=== PATIENT | male | born 1950 ===

== ENCOUNTER 2018-11-02 09:52 | Day surgery (SDC) | payer MEDICARE ==
[~2018-11-02 09:52] MED LIST: Buffered Lidocaine 1% SYRIN* 1 ML/SYRINGE INTRADERM ONE; Famotidine IV* 10 MG/ML 2 ML (20 mg) IV ONE; Lactated Ringers 1000 ML Bag* 1,000 ML IV SCH
[2018-11-02] MEDS ORDERED: Famotidine IV* 10 MG/ML 2 ML (20 mg) ONE (10:41)
[2018-11-02] MEDS ORDERED: Buffered Lidocaine 1% SYRIN* 1 ML/SYRINGE INTRADERM ONE (10:41)
[2018-11-02] MEDS ORDERED: Oxymetazoline 0.05% NASAL SPR* 15 ML BTL ONE ×2 (11:05→12:02)
[2018-11-02] MEDS ORDERED: fentaNYL* 50 MCG/ML 2 ML VIAL (100 MCG VIAL) ONE (11:46)
[2018-11-02] MEDS ORDERED: Midazolam* 1 MG/ML 2 ML VIAL (2 MG) ONE (11:46)
[2018-11-02] MEDS ORDERED: Bacitracin OINTMENT* 0.5% 0.5 oz TUBE ONE (12:02)
[2018-11-02] MEDS ORDERED: Lidocain 1% EPI 1:100,000 * 30 ML MDV ONE (12:02)
[2018-11-02] MEDS ORDERED: Lidocaine 4% TOPICAL* 50 ML TOP.SOLN ONE (12:02)
[2018-11-02] MEDS ORDERED: Propofol* 10 MG/ML 20 ML BTL ONE (12:08)
[2018-11-02] MEDS ORDERED: fentaNYL* 50 MCG/ML 2 ML VIAL (100 MCG VIAL) IV PRN (12:50)
[2018-11-02] MEDS ORDERED: DiMENhydriNATE IV* 50 MG/ML VIAL IV PUSH PRN (12:50)
[2018-11-02] MEDS ORDERED: Naloxone* 0.4 MG/ML 1 ML VIAL IV PRN (12:50)
[2018-11-02] MEDS ORDERED: HYDROcodone/ACETAMIN 5-325 MG* 1 TAB ONE (14:32)
[2018-11-02 14:39] VITALS: BP 163/84
--- NOTE | 2018-11-02 22:34 | OP ---
DATE OF OPERATION: 11/02/18 - [facility] DATE OF : 52 SURGEON: Yaniv Moyer MD. TREASURY ANALYST: None. ANESTHESIA: General. PRE-OP DIAGNOSIS: Chronic sinusitis involving the left frontal ethmoid and maxillary sinuses. POST-OP DIAGNOSIS: Chronic sinusitis involving the left frontal ethmoid and maxillary sinuses. OPERATIVE PROCEDURE: Left frontal sinusotomy, left anterior ethmoidectomy, and left maxillary antrostomy. ESTIMATED BLOOD LOSS: Approximately 50 cc. SPECIMENS: Cultures from the left maxillary sinus as well as sinus contents. INDICATIONS: This is a 68-year-old male who was referred for chronic sinus disease following multiple left maxillary dental procedures. He had culture- directed antibiotic therapy for a few weeks with failure to resolve his infection. CT demonstrated complete opacification of left maxillary sinus, scattered anterior ethmoid air cells as well as fluid and mucosal thickening of the left frontal sinus. The decision was made to bring the patient to the operating room for endoscopic surgery on 11/02/18. DESCRIPTION OF PROCEDURE: The patient was brought to the operating room. General anesthesia was induced and LMA was placed. The patient was draped and time-out was performed. The patient had been decongested with Afrin in the holding area. Additional Afrin and 4% lidocaine soaked pledgets were placed into left nasal cavity. Once adequate time had been allowed for vasoconstriction, the procedure was begun. The left middle turbinate was infiltrated with 1% lidocaine with epinephrine as was the lateral nasal wall inferior turbinate and root of the left middle turbinate. The Acclarent balloon was then brought into the field with the frontal guidewire on it. The wire was relatively easily introduced into the frontal sinus with good light reflex seen on the forehead. The balloon was then introduced over the guidewire and inflated along the frontal outflow tract in three positions to a pressure of 12 atmospheres. The sinus was then flushed. The uncinate was then taken down with the microdebrider. Pus was seen pulsating out of the maxillary antrum which was enlarged with a combination of instrumentation including a ball -tip probe, microdebrider, straight through-cutter as well as backbiter. The maxillary sinus was then copiously flushed with saline. The ethmoid bulla was also taken down. There was polypoid degeneration of the mucosa of the bulla. Once the procedure was complete, a Sandor Merocel pack was placed into the middle meatus and secured to the face with Steri-Strips. The patient was then extubated and delivered to the PACU in stable condition. [id number]/[facility] #: [id number] MTDD
== END 2018-11-02 15:04 | disposition home or self-care (01) ==
LOC: OR 09:52
PROVIDERS: ATTEND Otolaryngology
DX: J32.8 Other chronic sinusitis (principal); Z87.891 Personal history of nicotine dependence; R73.03 Prediabetes; J45.909 Unspecified asthma, uncomplicated; R01.1 Cardiac murmur, unspecified
CPT/HCPCS: 87070; 87073; 87076; 87077; 87185; 87186; 87205; 88305; A9270-GY; J2250; J2704; J3010